=== PATIENT | male | born 1980 | race African-American/Black ===

== ENCOUNTER 2016-10-02 21:16 | Emergency (ER) | payer BC ==
[~2016-10-02] VITALS: Ht 167.6 cm; Wt 86.0 kg
[~2016-10-02 21:16] MED LIST: AMOXICILLIN500 M2 PO; CIPRO500 MG OR; HYDROCO/APAP1 T11 PO; LORTAB 5 OR; LORTAB 7.5 OR; MOTRIN800 MG OR; NAPROSYN500 MG PO; NO; NO MEDS; NYQUI1 OR; THERAVITE OR; TRAMADOL HCL50 MG PO; TYLENOL # 31 TAB OR; TYLENOL500 MG OR; ULTRAM50 MG OR
[2016-10-02 22:38] VITALS: BP 122/85
== END 2016-10-02 22:39 | disposition left against medical advice (07) | DRG 951 ==
LOC: ED 21:16
DX: Z11.3 Encounter for screening for infections with a predominantly sexual mode of transmission (principal); F17.210 Nicotine dependence, cigarettes, uncomplicated; Z77.21 Contact with and (suspected) exposure to potentially hazardous body fluids

== ENCOUNTER 2017-01-25 21:12 | Emergency (ER) | payer SELFPAY ==
[~2017-01-25] VITALS: Ht 167.6 cm; Wt 99.0 kg
[2017-01-25 22:01] LABS: HEMATOCRIT 44.7 % (39.0-50.0); HEMOGLOBIN 15.1 g/dl (14.0-18.0); IMMATURE GRANULOCYTES 1.3 % (0.0-1.0); MEAN CELL VOLUME 85.1 fL CALC (80.0-100.0); MEAN CORPUSCULAR HGB 28.8 pG CALC (26.0-32.0); MEAN CORPUSCULAR HGB CONC 33.8 g/L CALC (32.0-36.0); NEUT# 6.45 thou/uL (1.82-7.42); RED BLOOD COUNT 5.25 mill/uL (4.70-6.10); RED CELL DISTRI WIDTH 14.2 % (11.5-15.5)
[2017-01-25 22:23] LABS: ALBUMIN 4.6 g/dL (3.2-5.0); ALKALINE PHOSPHATASE 73 u/l (38-126); ANION GAP 17 (6-22 (CALC)); BILIRUBIN, TOTAL 0.7 mg/dL (0.0-1.4); BUN 18 mg/dL (9-20); BUN/CREATININE RATIO 17 (12-20 (CALC)); CALCIUM 9.5 mg/dL (8.4-10.2); CARBON DIOXIDE 27 mmol/l (22-30); CHLORIDE 100 mmol/l (95-108); CREATININE 1.1 mg/dL (0.7-1.3); GFR > 60 ML/MIN (>=60 (CALC)); GFR FOR AFR.AMER. > 60 ML/MIN (>=60 (CALC)); GLUCOSE 99 mg/dL (75-110); SGOT/AST 51 u/l (17-59); SGPT/ALT 74 u/l (21-72); SODIUM 139 mmol/l (137-146); TOTAL PROTEIN 8.3 g/dL (6.3-8.2)
[2017-01-26] MEDS ORDERED: BACTRIM DS1 TAB PO (02:28)
[2017-01-26] MEDS ORDERED: PERCOCET 5/325M1 TAB PO (02:28)
[2017-01-26] MEDS ORDERED: KEFLEX500 MG PO (02:28)
[2017-01-26 04:53] VITALS: BP 107/67
== END 2017-01-26 04:47 | disposition left against medical advice (07) | DRG 603 ==
LOC: ED 21:12
PROVIDERS: Emergency Medicine
DX: L02.415 Cutaneous abscess of right lower limb (principal); F17.210 Nicotine dependence, cigarettes, uncomplicated; Z91.19 Patient's noncompliance with other medical treatment and regimen

== ENCOUNTER 2018-04-13 20:17 | Emergency (ER) | payer SELFPAY ==
[~2018-04-13] VITALS: Ht 167.6 cm; Wt 86.0 kg
[~2018-04-13 20:17] MED LIST changes: +BACTRIM DS1 TAB PO; +KEFLEX500 MG PO; +PERCOCET 5/325M1 TAB PO
[2018-04-13] MEDS ORDERED: CEPHALEXIN500 M1 PO (22:21)
[2018-04-13] MEDS ORDERED: BACTRIM DS1 TAB PO (22:21)
[2018-04-13] MEDS ORDERED: LORTAB 1010 MG PO (22:21)
[2018-04-13 22:49] VITALS: BP 142/78
[2018-04-14] MEDS ORDERED: BACTRIM DS1 TAB PO (17:02)
[2018-04-14] MEDS ORDERED: KEFLEX500 M1 PO (17:02)
== END 2018-04-13 22:47 | disposition home or self-care (01) | DRG 585 ==
LOC: ED 20:17
PROC: 0X950ZZ Drainage of Left Axilla, Open Approach (ICD-10-PCS; principal; 2018-04-13)
PROC: 0H9T0ZZ Drainage of Right Breast, Open Approach (ICD-10-PCS; 2018-04-13)
DX: L02.412 Cutaneous abscess of left axilla (principal); N61.1 Abscess of the breast and nipple; L02.411 Cutaneous abscess of right axilla; I10 Essential (primary) hypertension; F17.200 Nicotine dependence, unspecified, uncomplicated; B95.61 Methicillin susceptible Staphylococcus aureus infection as the cause of diseases classified elsewhere

== ENCOUNTER 2018-04-14 16:42 | Emergency (ER) | payer SELFPAY ==
[~2018-04-14] VITALS: Ht 167.6 cm; Wt 83.0 kg
[~2018-04-14 16:42] MED LIST changes: +CEPHALEXIN500 M1 PO; +LORTAB 1010 MG PO
[2018-04-14] MEDS ORDERED: BACTRIM DS1 TAB PO (17:02)
[2018-04-14] MEDS ORDERED: KEFLEX500 M1 PO (17:02)
[2018-04-14 17:14] VITALS: BP 126/88
== END 2018-04-14 17:14 | disposition home or self-care (01) | DRG 951 ==
LOC: ED 16:42
DX: Z48.01 Encounter for change or removal of surgical wound dressing (principal)

== ENCOUNTER 2018-07-16 15:00 | Emergency (ER) | payer SELFPAY ==
[~2018-07-16] VITALS: Ht 167.6 cm; Wt 86.4 kg
[~2018-07-16 15:00] MED LIST changes: +KEFLEX500 M1 PO
[2018-07-16] MEDS ORDERED: BACTRIM DS1 TAB PO (18:08)
[2018-07-16] MEDS ORDERED: TORADOL PO (18:08)
[2018-07-16 18:11] VITALS: BP 115/82
[2018-07-17] MEDS ORDERED: CEPHALEXIN500 MG PO (15:16)
== END 2018-07-16 18:11 | disposition home or self-care (01) | DRG 603 ==
LOC: ED 15:00
DX: L03.221 Cellulitis of neck (principal); F17.210 Nicotine dependence, cigarettes, uncomplicated

== ENCOUNTER 2018-07-17 14:46 | Emergency (ER) | payer SELFPAY ==
[~2018-07-17] VITALS: Ht 167.6 cm; Wt 86.4 kg
[~2018-07-17 14:46] MED LIST changes: +TORADOL PO
[2018-07-17] MEDS ORDERED: CEPHALEXIN500 MG PO (15:16)
[2018-07-17 16:00] VITALS: BP 129/92
== END 2018-07-17 16:07 | disposition home or self-care (01) | DRG 603 ==
LOC: ED 14:46
PROC: 0W900ZZ Drainage of Head, Open Approach (ICD-10-PCS; principal; 2018-07-17)
DX: L02.811 Cutaneous abscess of head [any part, except face] (principal); I10 Essential (primary) hypertension; F17.210 Nicotine dependence, cigarettes, uncomplicated; B95.61 Methicillin susceptible Staphylococcus aureus infection as the cause of diseases classified elsewhere

== ENCOUNTER 2021-01-30 14:56 | Emergency (ER) | payer SELFPAY ==
[~2021-01-30] VITALS: Ht 167.6 cm; Wt 86.0 kg
[~2021-01-30 14:56] MED LIST changes: +CEPHALEXIN500 MG PO
[2021-01-30 15:22] VITALS: BP 128/90
== END 2021-01-30 15:49 | disposition left against medical advice (07) | DRG 951 ==
LOC: ED 14:56 → LWOBS 15:46
DX: Z53.21 Procedure and treatment not carried out due to patient leaving prior to being seen by health care provider (principal)

== ENCOUNTER 2021-06-29 13:36 | Emergency (ER) | payer SELFPAY ==
[~2021-06-29] VITALS: Ht 167.6 cm; Wt 85.0 kg
[2021-06-29 17:05] VITALS: BP 131/72
[2021-06-29] MEDS ORDERED: ULTRAM50 MG PO (17:07)
== END 2021-06-29 17:09 | disposition home or self-care (01) | DRG 103 ==
LOC: ED 13:36
DX: R51.9 Headache, unspecified (principal); I10 Essential (primary) hypertension; F17.200 Nicotine dependence, unspecified, uncomplicated

== ENCOUNTER 2021-11-28 09:54 | Emergency (ER) | payer OTHER ==
[~2021-11-28] VITALS: Ht 167.6 cm; Wt 95.0 kg
[~2021-11-28 09:54] MED LIST changes: +ULTRAM50 MG PO
[2021-11-28] MEDS ORDERED: KEFLEX500 MG PO (12:42)
[2021-11-28] MEDS ORDERED: SILVADENE1 % EX (12:42)
[2021-11-28] MEDS ORDERED: ULTRAM50 M1 PO (12:42)
[2021-11-28 12:47] VITALS: BP 135/97
[2021-11-28] MEDS ORDERED: NEOSPORIN PLUS28 GM TOP (12:51)
== END 2021-11-28 13:00 | disposition home or self-care (01) | DRG 935 ==
LOC: ED 09:54
DX: T20.26XA Burn of second degree of forehead and cheek, initial encounter (principal); T21.21XA Burn of second degree of chest wall, initial encounter; X10.2XXA Contact with fats and cooking oils, initial encounter; S13.4XXA Sprain of ligaments of cervical spine, initial encounter; V44.6XXA Car passenger injured in collision with heavy transport vehicle or bus in traffic accident, initial encounter; Y92.488 Other paved roadways as the place of occurrence of the external cause

== ENCOUNTER 2022-01-01 16:56 | Emergency (ER) | payer SELFPAY ==
[~2022-01-01] VITALS: Ht 167.6 cm; Wt 86.3 kg
[~2022-01-01 16:56] MED LIST changes: +NEOSPORIN PLUS28 GM TOP; +SILVADENE1 % EX; +ULTRAM50 M1 PO
[2022-01-01 17:14] VITALS: BP 138/94
[2022-01-01] MEDS ORDERED: KEFLEX500 MG PO (17:49)
[2022-01-01 17:54] VITALS: BP 138/94
== END 2022-01-01 18:07 | disposition home or self-care (01) | DRG 605 ==
LOC: ED 16:56
PROC: 0HQLXZZ Repair Left Lower Leg Skin, External Approach (ICD-10-PCS; principal; 2022-01-01)
DX: S81.812A Laceration without foreign body, left lower leg, initial encounter (principal); I10 Essential (primary) hypertension; F17.200 Nicotine dependence, unspecified, uncomplicated; W25.XXXA Contact with sharp glass, initial encounter; Y92.009 Unspecified place in unspecified non-institutional (private) residence as the place of occurrence of the external cause

== ENCOUNTER 2022-05-19 16:23 | Emergency (ER) | payer SELFPAY ==
[2022-05-19 16:28] VITALS: BP 150/100
[2022-05-19 16:31] VITALS: BP 142/97
[2022-05-19 16:48] LABS: HEMATOCRIT 42.8 % (39.0-50.0); HEMOGLOBIN 14.2 g/dl (14.0-18.0); IMMATURE GRANULOCYTES 0.2 % (0.0-5.0); MEAN CELL VOLUME 86.3 fL CALC (80.0-100.0); MEAN CORPUSCULAR HGB 28.6 pG CALC (26.0-32.0); MEAN CORPUSCULAR HGB CONC 33.2 g/dL CAL (32.0-36.0); NEUT# 2.9 thou/uL (1.82-7.42); RED BLOOD COUNT 4.96 mill/uL (4.70-6.10); RED CELL DISTRI WIDTH 12.7 % (11.5-15.5)
[2022-05-19 16:58] LABS: ALBUMIN 4.1 g/dL (3.2-5.0); ALKALINE PHOSPHATASE 56 u/l (38-126); ANION GAP 10 (6-22 (CALC)); BILIRUBIN, TOTAL 0.3 mg/dL (0.0-1.4); BUN 13 mg/dL (9-20); BUN/CREATININE RATIO 14 (12-20 (CALC)); CARBON DIOXIDE 24 mmol/l (22-30); CHLORIDE 106 mmol/l (95-108); CREATININE 0.9 mg/dL (0.7-1.3); GFR FOR AFR.AMER. > 60 ML/MIN (>=60 (CALC)); GFR OTHER RACES > 60 ML/MIN (>=60 (CALC)); LIPASE 114 u/l (23-300); POTASSIUM 3.6 mmol/l (3.5-5.1); SGOT/AST 49 u/l (17-59); SODIUM 136 mmol/l (137-146); TOTAL PROTEIN 7.4 g/dL (6.3-8.2)
[2022-05-19 17:10] LABS: URINE BILIRUBIN - DIPSTICK NEGATIVE (NEGATIVE); URINE BLOOD DIPSTICK NEGATIVE (NEGATIVE); URINE COLOR YELLOW; URINE GLUCOSE - DIPSTICK NEGATIVE (NEGATIVE); URINE KETONE NEGATIVE (NEGATIVE); URINE LEUK ESTERASE NEGATIVE (NEGATIVE); URINE PROTEIN - DIPSTICK NEGATIVE (NEG-TRACE); URINE SPECIFIC GRAVITY >=1.030
[2022-05-19 17:13] LABS: URINE NITRITE - DIPSTICK NEGATIVE (Negative)
[2022-05-19] MEDS ORDERED: ZOFRAN4 MG/TAB PO (18:51)
[2022-05-19 18:56] VITALS: BP 142/97
== END 2022-05-19 19:07 | disposition home or self-care (01) | DRG 392 ==
LOC: ED
PROVIDERS: Family Medicine
DX: R10.32 Left lower quadrant pain (principal); F17.210 Nicotine dependence, cigarettes, uncomplicated
CPT/HCPCS: Q9967

== ENCOUNTER 2023-03-03 12:00 | Emergency (ER) | payer OTHER ==
[~2023-03-03] VITALS: Ht 167.6 cm; Wt 86.0 kg
[~2023-03-03 12:00] MED LIST changes: +ZOFRAN4 MG/TAB PO
[2023-03-03 12:37] VITALS: BP 127/82
[2023-03-03 12:45] VITALS: BP 141/92
[2023-03-03 13:00] VITALS: BP 133/87
[2023-03-03] MEDS ORDERED: ZYRTEC10 MG PO (13:11)
[2023-03-03] MEDS ORDERED: ZPAK PO (13:11)
[2023-03-03 13:15] VITALS: BP 139/89
[2023-03-03 13:19] VITALS: BP 139/89
== END 2023-03-03 13:29 | disposition home or self-care (01) ==
LOC: ED 12:00
DX: B34.9 Viral infection, unspecified (principal); I10 Essential (primary) hypertension; F17.210 Nicotine dependence, cigarettes, uncomplicated; Z20.822 Contact with and (suspected) exposure to COVID-19

== ENCOUNTER 2024-01-25 10:24 | Emergency (ER) | payer SELFPAY ==
[~2024-01-25] VITALS: Ht 167.6 cm; Wt 90.0 kg
[~2024-01-25 10:24] MED LIST changes: +AMOX/K CLAV875 M1 PO; +SUDAFED 12HR120 MG PO; +ZPAK PO; +ZYRTEC10 MG PO
[2024-01-25] MEDS ORDERED: ACETAMINOPHEN 500 MG TAB PO ONE (10:45)
[2024-01-25] MEDS ORDERED: traMADol HCL 50 MG/TAB PO ONE (10:45)
[2024-01-25] MEDS ORDERED: PERCOCET 5/325M1 TAB PO (11:46)
[2024-01-25 11:50] VITALS: BP 116/74
== END 2024-01-25 12:00 | disposition home or self-care (01) | DRG 563 ==
LOC: ED 10:24
DX: S93.401A Sprain of unspecified ligament of right ankle, initial encounter (principal); S90.01XA Contusion of right ankle, initial encounter; I10 Essential (primary) hypertension; F17.200 Nicotine dependence, unspecified, uncomplicated; X50.0XXA Overexertion from strenuous movement or load, initial encounter; Y93.89 Activity, other specified